=== PATIENT | male | born 1960 | race Caucasian/White ===

== ENCOUNTER 2025-05-04 09:07 | Outpatient (OUT) | payer MEDICARE, SELFPAY ==
--- NOTE | 2025-05-04 09:14 | XR_ITS ---
The [address] [address] Patient Name: LUCIANO ROCHA MRN: [id number] date: 1960 Sex: M Assigned Patient Location: [facility] Current Patient Location: [facility] Accession/Order Number: [id number] Exam Date: 05/04/2025 09:45 Report Date: 05/04/2025 11:10 At the request of: CAROLINE COPELAND MD Procedure: XR chest 2V PA AND LATERAL CHEST: CLINICAL HISTORY: Preoperative clearance. 50 year history of tobacco use. COMPARISON: None The lungs are hyperinflated. There is no focal parenchymal consolidation, effusion or pneumothorax. The cardiac, hilar and mediastinal silhouettes are within normal limits. There is no vascular congestion. An old left rib fracture is noted. There is slight levoscoliotic curvature and minor endplate spurring. XR/XR chest 2V IMPRESSION: OBSTRUCTIVE LUNG DISEASE. GIVEN THE LONG HISTORY OF TOBACCO USE, IF NOT PERFORMED ELSEWHERE, LOW-DOSE SCREENING CHEST CT COULD BE CONSIDERED. NO ACUTE CARDIOPULMONARY ABNORMALITY. Impression dictated by: Divina Oneill M.D. 05/04/2025 11:10 AM Dictation Location: [facility] Electronically authenticated by: [id number] Y Date: 05/04/2025 11:10
--- NOTE | 2025-05-04 09:14 | ECG_ITS ---
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 Measurements Intervals [place] Rate: 75 P: 81 MO: 169 QRS: 61 QRSD: 87 T: 23 QT: 361 QTc: 405 Interpretive Statements SINUS RHYTHM WITH OCCASIONAL VENTRICULAR PREMATURE COMPLEXES Possible inferior myocardial infarction, age undetermined Abnromal ECG No previous ECG available for comparison Electronically Signed On 05-04-2025 19:26:47 EST by ASHLEE FRAIRE M.D.
[2025-05-04 10:16] LABS: Hematocrit 44.7 % (42.0-54.0); Hemoglobin 14.6 g/dL (14.0-18.0); Immature Granulocytes Abs Auto 0.02 10^3/uL (0.00-0.03); Immature Granulocytes Pct Auto 0.3 % (0.0-0.5); Lymphocytes Absolute Auto 1.6 10^3/uL (1.2-3.8); Mean Corpuscular HGB Conc 32.7 g/dL (29.9-35.2); Mean Corpuscular Hemoglobin 28.1 pg (25.9-34.0); Mean Corpuscular Volume 86.0 fL (80.0-94.0); Platelet Count 344 10^3/uL (150-450); Red Blood Count 5.20 10^6/uL (4.70-6.10); White Blood Count 6.6 10^3/uL (4.0-11.0)
--- NOTE | 2025-05-04 10:22 | P.GSHP_ITS ---
History of Present Illness History of Present Illness Chief complaint: bph with obs Narrative: Patient presents for presurgical testing. Please see HPI from Dr. Colunga dated April 30, 2025. Review of Systems ROS Narrative REVIEW OF SYSTEMS: Constitutional: No fever, chills, weakness ENT: No sore throat or epistaxis Cardiovascular: No edema, chest pain, or palpitations; admits to dyspnea on exertion Respiratory: Chronic shortness of breath, cough, and wheezing Musculoskeletal: No joint pain or swelling Gastrointestinal: No abdominal pain, constipation, diarrhea, or vomiting Genitourinary: No dysuria or hematuria Neurological: No numbness, tingling, weakness, or headache Psychiatric: No mood changes [facility]SH [facility], [facility] Medical History (Updated 05/04/25 @ 10:15 by Chanda Leonard NP) SHEEHAN (dyspnea on exertion) ?R06.09 - Other forms of dyspnea (ICD-10) Head injury (~1975) ?S09.90XA - Unspecified injury of head, initial encounter (ICD-10) Psoriasis ?L40.9 - Psoriasis, unspecified (ICD-10) Panic attacks ?F41.0 - Panic disorder [episodic paroxysmal anxiety] (ICD-10) Anxiety ?F41.9 - Anxiety disorder, unspecified (ICD-10) Chronic obstructive pulmonary disease ?J44.9 - Chronic obstructive pulmonary disease, unspecified (ICD-10) Asthma ?J45.909 - Unspecified asthma, uncomplicated (ICD-10) Heartburn ?R12 - Heartburn (ICD-10) High cholesterol ?E78.00 - Pure hypercholesterolemia, unspecified (ICD-10) Paranoia ?F22 - Delusional disorders (ICD-10) Hypertension ?I10 - Essential (primary) hypertension (ICD-10) Herpes ?B00.9 - Herpesviral infection, unspecified (ICD-10) CAD (coronary artery disease) ?I25.10 - Atherosclerotic heart disease of [place] coronary artery without angina pectoris (ICD-10) Myocardial infarct ?I21.9 - Acute myocardial infarction, unspecified (ICD-10) Schizophrenia ?F20.9 - Schizophrenia, unspecified (ICD-10) Hyperlipidemia ?E78.5 - Hyperlipidemia, unspecified (ICD-10) Depression ?F32.A - Depression, unspecified (ICD-10) BPH with obstruction/lower urinary tract symptoms ?N40.1 - Benign prostatic hyperplasia with lower urinary tract symptoms (ICD- 10) ?N13.8 - Other obstructive and reflux uropathy (ICD-10) Surgical History (Updated 05/04/25 @ 10:14 by Chanda Leonard NP) S/P arterial stent (~2012) ?Z95.9 - Presence of cardiac and vascular implant and graft, unspecified (ICD-10) History of open reduction and internal fixation (ORIF) procedure ?Z98.890 - Other specified postprocedural states (ICD-10) S/P arterial stent (07/17/12) ?Z95.9 - Presence of cardiac and vascular implant and graft, unspecified (ICD-10) History of hernia repair ?Z98.890 - Other specified postprocedural states (ICD-10) ?Z87.19 - Personal history of other diseases of the digestive system (ICD-10) H/O colonoscopy ?Z98.890 - Other specified postprocedural states (ICD-10) H/O prostate biopsy ?Z98.890 - Other specified postprocedural states (ICD-10) H/O cystoscopy ?Z98.890 - Other specified postprocedural states (ICD-10) Family History (Updated 05/04/25 @ 09:41 by Chanda Leonard NP) Other Family history of coronary artery disease Family history of heart disease Psychiatric disorder Social History (Updated 05/04/25 @ 09:33 by Chanda Leonard NP) Within the past year, how often did you have a drink containing alcohol: monthly or less Smoking status: Current every day smoker What tobacco products do you use: cigarettes Packs per day: 1 Years smoked: 52 Smoking pack-years: 52.00 Non-prescribed substance use: denies use Highest level of school completed/degree received: high school graduate Meds Home Medications and Allergies Home Medications ?Medication ?Instructions ?Recorded ?Confirmed ?Type albuterol sulfate 90 mcg/actuation 2 inh inhalation Q4 H PRN shortness 05/04/25 05/04/25 History aerosol inhaler of breath or wheezing aspirin 325 mg capsule 650 mg PO DAILY 05/04/25 History atorvastatin 80 mg tablet 40 mg PO QPM 05/04/25 History cetirizine 10 mg tablet (Allergy 10 mg PO DAILY PRN al lergy symptoms 05/04/25 05/04/25 History Relief (cetirizine)) dutasteride 0.5 mg capsule 0.5 mg PO DAILY 05/04/25 History paliperidone 9 mg tablet,extended 9 mg PO QPM 05/04/25 05/04/25 History release 24 hr Allergies Allergy/AdvReac Type Severity Reaction Status Date / Time doxycycline Allergy SOB Verified 05/04/25 09:27 haloperidol (From Haldol) Allergy muscle Verified 05/04/25 09:27 stiffness tamsulosin Allergy Hypotension Verified 05/04/25 09:27 venom-honey bee Allergy localized Verified 05/04/25 09:27 swelling Exam Narrative Exam Narrative: Constitutional: Awake, alert, disheveled, chronically ill-appearing, nontoxic, interactive, vital signs as charted Head: Normocephalic, atraumatic Eyes: Scleral injection, no icterus, pupils normal Neck: Supple, normal appearance, normal range of motion, no meningeal signs, no lymphadenopathy Respiratory: Obvious dyspnea on exertion, diffuse inspiratory and expiratory wheezes throughout lung [place] with rhonchi bilateral bases Cardiovascular: Regular rate and rhythm, strong and regular heart tones Abdomen: Nontender, normal bowel sounds, soft, no CVA tenderness Musculoskeletal: Normal gait, no swelling or edema Skin: Pale, no rashes or induration, no lesions, only visible skin inspected Neuro: No neurological deficits, normal sensation Psychiatric: Oriented ?3, normal affect Assessment and Plan Assessment and Plan (1) BPH with obstruction/lower urinary tract symptoms: Plan Cystoscopy/TURP scheduled with Dr. Colunga May 21, 2025.
[2025-05-04 10:23] LABS: Anion Gap 5.6; Blood Urea Nitrogen 13.0 mg/dL (7.0-18.0); Calcium 9.7 mg/dL (8.5-10.1); Carbon Dioxide 36.8 mmol/L (21.0-32.0); Chloride 103 mmol/L (98-107); Estimated GFR (African America >60 (>=60 mL/min/1.73m^2); Estimated GFR (Non-African Ame >60 (>=60 mL/min/1.73m^2); Potassium 4.4 mmol/L (3.5-5.1); Sodium 141 mmol/L (136-145)
[2025-05-04 10:25] LABS: Glucose 49 mg/dL (74-106)
[2025-05-04 10:33] LABS: INR 1.00; Partial Thromboplastin Time 29.6 sec (22.3-36.2); Prothrombin Time 10.5 sec (9.0-11.6)
== END 2025-05-04 09:08 | disposition home or self-care (01) ==
LOC: PST 09:08
PROVIDERS: PCP Family Medicine; Visit Provider Urology
DX: Z01.810 Encounter for preprocedural cardiovascular examination (principal); Z01.812 Encounter for preprocedural laboratory examination; Z01.818 Encounter for other preprocedural examination; N40.1 Benign prostatic hyperplasia with lower urinary tract symptoms; J44.9 Chronic obstructive pulmonary disease, unspecified
CPT/HCPCS: 36415; 71046; 80048; 85025; 85610; 85730; 93005; G0463